=== PATIENT | male | born 1955 | race Caucasian/White ===

== ENCOUNTER 2022-01-30 03:28 | Emergency (ER) | payer MEDICARE ==
[~2022-01-30] VITALS: Ht 182.9 cm; Wt 86.4 kg
[2022-01-30] MEDS ORDERED: meclizine 12.5mg tablet PO ONE ×2 (03:55→06:20)
[2022-01-30] MEDS ORDERED: ondansetron 4mg rapidly disintigrating tab PO ONE (03:55)
--- NOTE | 2022-01-30 04:40 | NUR ---
Pt vomited anitvert and zofran odt. See new orders for compazine IV
[2022-01-30] MEDS ORDERED: proCHLORperazine 10 MG/2 ml inj IV ONE (04:45)
[2022-01-30] MEDS ORDERED: ONDA8TAB13 PO (04:58)
[2022-01-30] MEDS ORDERED: MECL-226 PO (04:58)
[2022-01-30] MEDS ORDERED: metoclopramide 5 mg/ml inj IV ONE (05:35)
--- NOTE | 2022-01-30 06:16 | NUR ---
PT STILL COMPLAINTS OF NAUSEA AND DIZZINESS AFTER MEDS. PT IS TX AND DC. DR US TO DR THAPA FOR POSSIBLE ADMISSION. NO PAIN OR DISCOMFORT
[2022-01-30] MEDS ORDERED: LORazepam 2 mg/ml vial IV ONE (06:20)
[2022-01-30 12:54] VITALS: BP 144/82
== END 2022-01-30 13:17 | disposition home or self-care (01) ==
LOC: ER 03:28
DX: H81.10 Benign paroxysmal vertigo, unspecified ear (principal); R11.0 Nausea; Z79.899 Other long term (current) drug therapy
CPT/HCPCS: 93005; 96374; 96375; 99285; J0780; J2060; J2765; J8597